=== PATIENT | female | born 1940 | race Caucasian/White ===

== ENCOUNTER 2019-12-03 12:50 | Outpatient (CLI) | payer MEDICARE, SELFPAY ==
--- NOTE | ~2019-12-03 | XR_ITS ---
EXAMINATION: XR lumbar spine 2-3V EXAM DATE: 12/03/2019 13:24 INDICATION: Low back pain, chronic. TECHNIQUE: Lumber spine frontal, lateral, lateral L5-S1 projections for interpretation. Comparison is made to prior examination from 08/30/2019. FINDINGS: Mild diffuse lumbar disc disease, mild to moderate facet arthropathy. The vertebral bodies are aligned in the AP dimension. Vertebral body heights appear maintained. Sacrum, sacroiliac joints , sacral arcuate lines are intact. No spondylolysis. There is no significant interval change. IMPRESSION: 1. Mild to moderate lumbar arthropathy. 2. Mild disc disease Reviewed, dictated and finalized at location A.
== END 2019-12-03 12:51 | disposition home or self-care (01) ==
LOC: CHSIMG 12:52
PROVIDERS: PCP Nurse Practitioner Family; Visit Provider Nurse Practitioner Family
DX: M54.5 Low back pain (principal)
CPT/HCPCS: 72100

== ENCOUNTER 2020-03-07 10:28 | Outpatient (CLI) | payer MEDICARE, SELFPAY ==
--- NOTE | ~2020-03-07 | XR_ITS ---
XR chest 2V DATE: 03/07/2020 10:52 INDICATION: Shortness of breath TECHNIQUE: PA and lateral views COMPARISON: 09/06/2018 two-view chest FINDINGS: Heart size is within normal range. There is aortic calcification and mild unfolding. No hil ar or mediastinal enlargement. The lungs are moderately hyperinflated but clear of infiltrate or consolidation. No pleural effusion or pulmonary vascular congestion or pneumothorax. Osteopenia. IMPRESSION: Bilateral hyperinflation; no active cardiac pulmonary disease Aortic atherosclerosis Osteopenia Reviewed, dictated and finalized at location [facility].
--- NOTE | ~2020-03-07 | MR_ITS ---
EXAMINATION: MR lumbar spine wo con DATE: 03/07/2020 11:32 INDICATION: Bilateral foot numbness and tingling. TECHNIQUE: Magnetic resonance imaging (MRI) of the lumbar spine was performed without intravenous con trast. Sequences included sagittal T2-weighted FSE, sagittal T2-weighted FS FSE, sagittal T1-weighted FSE, and axial T2-weighted FSE. COMPARISON: Lumbar spine radiographs 12/03/2019 FINDINGS: Bone alignment is normal. There are Schmorl's nodes from L2-L3 through L4-L5. Intervertebra l disc heights are normal. At T12, there is a dural mass measuring 4.3 cm craniocaudal by 5 mm anteri or to posterior by 1.8 cm [id number]. The mass extends from the superior endplate of T12 to the pe dicular level of L1. This finding is likely a sequestered disc. The distal spinal cord signal intensi ty is normal. The conus medullaris is at L1. There is a 3.5 cm cyst in left kidney. The following dis c levels are specifically discussed: L1-L2: There is a left foraminal protrusion with annular fissure. There is mild bilateral facet joint osteoarthritis. There is mild left neural foraminal stenosis. There is no central canal stenosis. L2-L3: There is a right foraminal protrusion. There is mild bilateral facet joint osteoarthritis. The re is mild right neural foraminal stenosis. There is no central canal stenosis. L3-L4: The disc is bulging. There is moderate bilateral facet joint osteoarthritis. There is mild miko ateral neural foraminal stenosis. There is mild central canal stenosis. L4-L5: The disc is bulging. There is moderate bilateral facet joint osteoarthritis. There is mild miko ateral neural foraminal stenosis. There is mild central canal stenosis. L5-S1: The disc does not extend beyond the endplate margins. There is severe bilateral facet joint os teoarthritis. There is no neural foraminal stenosis. There is no central canal stenosis. IMPRESSION: 1. Mild lumbar spondylosis. Reviewed, dictated and finalized at location A. IMPRESSION: 1. Mild lumbar spondylosis.
== END 2020-03-07 10:29 | disposition home or self-care (01) ==
PROVIDERS: PCP Nurse Practitioner Family; Visit Provider Nurse Practitioner Family
DX: R06.02 Shortness of breath (principal); M47.896 Other spondylosis, lumbar region; I70.0 Atherosclerosis of aorta; M85.88 Other specified disorders of bone density and structure, other site; R91.8 Other nonspecific abnormal finding of lung field
CPT/HCPCS: 71046; 72148

== ENCOUNTER 2020-03-11 08:32 | Outpatient (CLI) | payer MEDICARE, SELFPAY ==
--- NOTE | 2020-03-11 | ECHO_ITS ---
Patient Info Name: Kaylee Cardenas Age: 79 years : 1940 Gender: Female Ht: 64 in Wt: 168 lbs BSA: 1.88 m2 HR: 58 bpm BP: 157 / 102 mmHg Technical Quality: Good Exam Date: 03/11/2020 8:47 AM Exam Location: [facility] Pulmonary Patient Status: Outpatient Admit Date: 03/11/2020 Staff Ordering Physician: Lori, Jason Munoz NP Combination Window Installer: Sailaja Caicedo RDCS Attending Provider: Lori, Jason Munoz NP Referring Physician: Lori SHAVER; Exam Type: CA echo doppler color flow Study Info Indications R06.02 - Shortness of breath Complete two-dimensional, color flow and Doppler transthoracic echocardiogram is performed. Summary 1. Normal LV size and wall thickness; normal LV systolic function, ejection fraction 65-70%. Grade 1 diastolic dysfunction with elevated left heart pressures. LV global longitudinal strain-18.3. Mild mitral annular calcification, no significant MR. Sclerotic aortic valve, no significant stenosis by Doppler. Trace TR, RVSP 26 mmHg. Left Ventricle Left ventricular chamber dimension is normal. Left ventricular systolic function is normal, estimated at 65-70%. There is no increased left ventricular wall thickness. Left ventricular septal wall motion is normal. The left ventricular diastolic function is grade I diastolic dysfunction. Right Ventricle Right ventricular chamber dimension is normal. Right ventricular systolic function is normal. Left Atria Left atrial chamber dimension is normal. Right Atria Right atrial chamber dimension is normal. Aortic Valve There is moderate aortic valve sclerosis. There is no aortic valve stenosis. There is no aortic valve regurgitation. There is mild aortic valve calcification. Pulmonic Valve The pulmonic valve is normal. There is trace pulmonic regurgitation. Mitral Valve The mitral valve has normal leaflets. There is no mitral valve stenosis. There is no mitral valve regurgitation. The mitral valve annulus is mildly calcified. Tricuspid Valve The tricuspid valve leaflets are normal. There is trace tricuspid valve regurgitation. No pulmonary hypertension, estimated pulmonary arterial systolic pressure is 26 mmHg. Pericardium/Pleural The pericardium appears epicardial fat pad. There is no pericardial effusion. Inferior Vena Cava Normal inferior vena cava with >50% collapse upon inspiration consistent with normal right atrial pressure, 5 mmHg. Aorta The aortic root size at the sinus of Valsalva is normal. The prox ascending aorta size is normal. Left Ventricular Outflow Tract Name Value Normal LVOT 2D LVOT Diameter 2.0 cm LVOT Doppler LVOT Peak Gradient 2 mmHg LVOT Mean Gradient 1 mmHg LVOT VTI 19 cm LVOT VTI/AV VTI Ratio 0.8 LVOT Stroke Volume 62 ml LVOT CO 3.4 l/min LVOT CI 1.8 l/min/m2 Pulmonic Valve Name
== END 2020-03-11 08:33 | disposition home or self-care (01) ==
LOC: ANHCARD 08:34
PROVIDERS: PCP Nurse Practitioner Family; Visit Provider Nurse Practitioner Family
DX: R06.02 Shortness of breath (principal)
CPT/HCPCS: 93306

== ENCOUNTER 2022-09-08 10:03 | Outpatient (RCR) | payer MEDICARE, SELFPAY ==
--- NOTE | 2022-09-08 17:43 | PTOPEVAL1 ---
Assessment and note entered by Fredi Garrett Evaluation Information Assessment Status Evaluation Diagnosis low back strain Onset 08/17/22 Subjective Information Pt. reports that she was sitting in her recliner. She attempted to reach back behind her while twisting and felt immediate pain in the back. Pt. reports that her pain had initially started to worsen. She states that she was recently given tylenol with codine which has helped to reduce her pain. She reports pain is worst with getting out of a chair or getting out of bed. She also notes pain with coughing. She describes most pain on the left side of the low back. She underwent xray which revealed some arthritis and compression fx at the L2 level. she reports pain will wake her on occasion. She reports that her goal is to reduce her pain. Reported Pain Level Pain Score 3: Self Report Assessment PT Clinical Summary Pt. is an 81 year old female who enters the clinic with low back pain following compression fx of the lumbar spine. She presents with impaired mobility, impaired strength, functional decline and pain. Continued treatment is indicated in order to improve these areas to allow the pt. improved comfort with IADL performance. Plan of Care Interventions Electrical Stimulation,Hot Pack/Cold Pack,Manual Therapy,Neuro Re-education,Therapeutic Activities, Therapeutic Exercise,Self-Care/Home Management PT Services Indicated Yes Treatment Frequency and 3x/week x 12 visits Duration These treatments will address the objective and functional deficits as defined above. The patient will be advanced safely and appropriately in order for the patient to progress towards his/her prior level of function. Additional exercises will be introduced and as well as a comprehensive home exercise program upon discharge, if needed, ?to ensure carryover of functional gains achieved in the clinic. This treatment plan has been reviewed and agreement upon by the patient.
== END 2022-09-13 23:59 | disposition home or self-care (01) ==
LOC: CHSPT 10:03
PROVIDERS: PCP Family Medicine; Visit Provider Family Medicine
DX: S39.012D Strain of muscle, fascia and tendon of lower back, subsequent encounter (principal)
CPT/HCPCS: 97014; 97110; 97161; G0283

== ENCOUNTER → 2022-11-16 09:16 | Outpatient (CLI) | payer MEDICARE, SELFPAY ==
--- NOTE | ~2022-11-16 | CT_ITS ---
Noncontrast CT scan of the lumbar spine CLINICAL HISTORY: Compression fracture TECHNIQUE: Axial noncontrast imaging of the lumbar spine was performed. Sagittal and coronal reformat jovana images were constructed. Dose reduction technique was used on this scan by utilizing automated ex posure control and iterative reconstruction technique. FINDINGS: Moderate compression fracture of L2 present. There are mild compression fractures of L3 and L4. No distinct subluxation evident. Intervertebral disc spaces are relatively well-preserved. At L1-L2, there is mild disc bulge. There is minimal facet arthropathy. No spinal canal stenosis. The re is probable moderate bilateral neural foraminal narrowing, related to disc bulge and mild retropul layo of the superior portion of the L2 vertebral body. At L2-L3, there is mild disc bulge and minimal facet arthropathy. No trav spinal canal stenosis. Pro bable mild bilateral neural foraminal narrowing. At L3-L4, disc bulge and facet arthropathy result in probable moderate thecal sac compression/spinal canal stenosis. There is moderate left neural foraminal narrowing and severe right neural foraminal n arrowing. At L4-L5, there is minimal disc bulge with facet arthropathy. There is probable mild thecal sac compr ession. There is moderate bilateral neural foraminal narrowing. At L5-S1, there is mild disc bulge and minimal facet arthropathy. No spinal canal stenosis or definit e neural foraminal narrowing. Paravertebral soft tissues are unremarkable. IMPRESSION: Moderate compression fracture of L2, and mild compression fracture deformities of L3 and L4. These ar e somewhat age indeterminate, but are new as compared to prior MRI dated 03/07/2020. Moderate degenerative spondylosis, as detailed above. Reviewed, dictated and finalized at [facility]. SPORTATION WORKER IMPRESSION: Moderate compression fracture of L2, and mild compression fracture deformities of L3 and L4. These are somewhat age indeterminate, but are new as compared to prior MRI dated 03/07/2020. Moderate degenerative spondylosis, as detailed above.
--- NOTE | ~2022-11-16 | CT_ITS ---
Noncontrast CT scan of the thoracic spine CLINICAL HISTORY: Spondylosis TECHNIQUE: Axial noncontrast imaging of the thoracic spine was performed. Sagittal and coronal reform atted images were constructed. Dose reduction technique was used on this scan by utilizing automated exposure control and iterative reconstruction technique. FINDINGS: There is no fracture or subluxation of the thoracic spine. Vertebral bodies maintain normal height and alignment. Intervertebral disc spaces are well preserved throughout the thoracic spine. No significant disc bulge or herniation identified. No definite canal stenosis or cord compression id entified. Paravertebral soft tissues are unremarkable. Nonobstructing left renal stones are noted. IMPRESSION: No significant abnormality of the thoracic spine itself. Nonobstructing left renal stones noted. Reviewed, dictated and finalized at [facility]. OO IDENTIFIER
== END ==
PROVIDERS: PCP Family Medicine; Visit Provider Neurological Surgery
DX: S32.000A Wedge compression fracture of unspecified lumbar vertebra, initial encounter for closed fracture (principal); M47.814 Spondylosis without myelopathy or radiculopathy, thoracic region; N20.0 Calculus of kidney
CPT/HCPCS: 72128; 72131